=== PATIENT | female | born 1970 | race Caucasian/White ===

== ENCOUNTER 2021-07-25 16:16 | Emergency (ER) | payer OTHER, SELFPAY ==
--- NOTE | ~2021-07-25 | US_ITS ---
US abdomen limited DATE: 07/25/2021 18:07 INDICATION: Abdominal pain TECHNIQUE: Real-time imaging of liver, there is, gallbladder COMPARISON: gallbladder ultrasound examination FINDINGS: No hepatic space-occupying mass lesion is evident. No gallstones or gallbladder wall thickening. Negative sonographic Cade's sign. The common bile patel t measures 5.9 mm, within upper normal range. The pancreas is not well demonstrated due to overlying bowel gas. IMPRESSION: The pancreas is not well demonstrated; otherwise unremarkable examination Reviewed, dictated and finalized at [facility]. Reviewed, dictated and finalized at [facility]. IMPRESSION: The pancreas is not well demonstrated; otherwise unremarkable exami nation
[2021-07-25 16:17] VITALS: BP 129/51; PULSE 107; RESP 20; TEMP 36.8; O2SAT 100
--- NOTE | 2021-07-25 16:57 | ED.ABDPAIN ---
HPI - Abdominal Pain General Chief Complaint: Abdominal Pain Stated Complaint: N/V/D Time Seen by Provider: 07/25/21 16:49 History of Present Illness HPI narrative: 50-year-old female presents emergency room secondary to cramping intermittent left upper quadrant abdominal pain. Patient is also been having vomiting and diarrhea. She states several years ago they thought she had gallbladder issues and she was sent down to [place] where work-up and evaluation determined that her gallbladder was fine but she did have some sludge in her gallbladder. At that time she was positive for Helicobacter pylori and was treated for that and her symptoms resolved. She states this seems very similar to that. She is also concerned that maybe she is got pancreatitis and states she did have some sludge in her gallbladder. 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 No one else at home has been sick. Denies any chills or fevers. She also states that in the past Bentyl would help out significantly. Related Data Allergies Allergy/AdvReac Type Severity Reaction Status Date / Time No Known Allergies Allergy Unverified 03/15/13 13:53 Review of Systems Review of Systems: CONSTITUTIONAL: Denies fever, chills, or sweats. EYES: Denies visual changes, redness, or discharge. ENT: Denies rhinorrhea, congestion, sore throat, or otalgia. CARDIOVASCULAR: Denies chest pain, palpitations, or edema. RESPIRATORY: Denies cough or dyspnea. GASTROINTESTINAL: Left upper quad abdominal pain with associated nausea, vomiting, and diarrhea GENITOURINARY: Denies dysuria or hematuria. SKIN: Denies rash or itching. MUSCULOSKELETAL: Denies back pain, joint pain, or myalgia. NEUROLOGIC: Denies headache, numbness, or weakness. PSYCHIATRIC: Denies anxiety or depression. PMFSH Family History Family History Mother Patient's mother is in good health Sibling Patient's sister is in good health Father Carcinoma of colon, Onset Age: 61 Patient's father is Social History Social History Smoking status: Never smoker Alcohol intake: never Exam Narrative: APPEARANCE: Well appearing, no pain or distress, well-nourished. Head normocephalic and atraumatic. EYES: PERRLA/EOMI, conjunctivae very clear. NOSE: Normal with no drainage EARS:TMS clear [place], with good light reflex. THROAT: Pharynx clear, no exudate. NECK: Supple. No adenopathy, no masses. RESPIRATORY: Airway patent, respirations nonlabored. Clear to auscultation bilaterally, no rales, rhonchi, wheezing. CARDIOVASCULAR: Regular rate and rhythm without murmurs, rubs, or gallops. ABDOMINAL: Soft, nontender, nondistended, no hepatosplenomegaly Musculoskeletal: Moves all extremities. Strength/ROM intact, No edema, No calf tenderness. NEURO: Alert. Cranial nerves II through XII intact. Normal gait. Good coordination. Nonfocal examination. SKIN:: Warm, dry. Normal Color PSYCHIATRIC: Normal affect/mood, normal interaction Course Vital Signs Vital signs: Vital Signs Temperature 98.3 F 07/25/21 16:17 Pulse Rate 107 H 07/25/21 16:17 Respiratory Rate 20 07/25/21 16:17 Blood Pressure 129/51 L 07/25/21 16:17 Pulse Oximetry 100 07/25/21 16:17 Oxygen Delivery Room Air 07/25/21 16:17 Temperature 98.3 F 07/25/21 16:17 Pulse Rate 107 H 07/25/21 16:17 Respiratory Rate 20 07/25/21 16:17 Blood Pressure 129/51 L 07/25/21 16:17 Pulse Oximetry 100 07/25/21 16:17 Oxygen Delivery Room Air 07/25/21 16:17 MDM - Abdominal Pain MDM Narrative Medical decision making narrative: Gallbladder ultrasound shows no abnormalities. There is no stones or pericholecystic fluid or gallbladder wall thickening. Laboratory work-up was unremarkable including a lipase. This was all reviewed with the patient. Patient was given IV hydration in the emergency room. Also gi
[2021-07-25] MEDS: SODIUM CHLORIDE 0.9% IV 1,000 ML 999 ML IV CONT (17:13)
[2021-07-25] MEDS: DICYCLOMINE HCL INJ 20 MG/2 ML VIAL IM (17:13)
[2021-07-25] MEDS: ONDANSETRON INJ 4 MG/2 ML VIAL IV PUSH (17:13)
[2021-07-25 17:17] LABS: Basophils Percent Auto 0.4 % (0.2-1.2); Eosinophils Absolute Auto 0.2 K/mm3 (0-0.3); Eosinophils Percent Auto 1.8 % (0-4.4); Hematocrit 37.6 % (37.0-47.0); Hemoglobin 11.6 g/dL (12.0-15.0); Immature Granulocyte Absolute 0.05 K/mm3 (0.00-0.031); Immature Granulocyte Percent A 0.5 % (0-0.5); Lymphocytes Absolute Auto 0.85 K/mm3 (0.9-3.2); Lymphocytes Percent Auto 9.1 % (18.3-44.2); Mean Corpuscular HGB Conc 30.9 g/dl (32-36); Mean Corpuscular Hemoglobin 24.5 pg (26-34); Mean Corpuscular Volume 79.3 fl (80-100); Mean Platelet Volume 11.2 fl (7.4-10.4); Monocytes Absolute Auto 0.8 K/mm3 (0.1-0.6); Monocytes Percent Auto 8.5 % (2.6-8.5); Neutrophils Absolute Auto 7.4 K/mm3 (1.3-6.7); Neutrophils Percent Auto 79.7 % (45.5-73.1); Platelet Count Result 382 k/mm3 (150-375); Red Blood Count 4.74 M/mm3 (4.2-5.4); Red Cell Distribution Width 16.4 % (11.5-14.5); White Blood Count 9.3 K/mm3 (4.5-10.0)
[2021-07-25 17:29] LABS: Alanine Aminotransferase 16 U/L (6-35); Albumin Level 4.3 g/dL (3.5-5.1); Alkaline Phosphatase 68 U/L (38-126); Anion Gap 10 mmol/L (8-16); Aspartate Amino Transferase 26 U/L (14-36); Bilirubin,Total 0.4 mg/dL (0.2-1.3); Blood Urea Nitrogen 13 mg/dL (7-17); Calcium 8.4 mg/dL (8.4-10.2); Carbon Dioxide 21 mmol/L (22-30); Chloride 106 mmol/L (98-107); Estimated CRCL calculation 75 ml/min; Estimated Glomerular Filt Rate > 60; Glucose 115 mg/dL (65-110); Lipase 67 U/L (23-300); Potassium 3.5 mmol/L (3.4-5.0); Sodium 137 mmol/L (137-145)
== END 2021-07-25 19:04 | disposition home or self-care (01) ==
PROVIDERS: Emergency Provider Emergency Medicine
DX: K29.70 Gastritis, unspecified, without bleeding (principal)
CPT/HCPCS: 36415; 76705; 80053; 83690; 85025; 96361; 96372; 96374; 99284; J0500; J2405; J7030